=== PATIENT | female | born 1990 | race Caucasian/White ===

== ENCOUNTER 2020-05-27 18:43 | Emergency (ER) | payer OTHER ==
[~2020-05-27] VITALS: Ht 172.7 cm; Wt 81.2 kg
[2020-05-27] MEDS ORDERED: PREDNISONE20 MG PO (19:23)
[2020-05-27] MEDS ORDERED: ACYCLOVIR800 MG PO (19:23)
[2020-05-27] MEDS ORDERED: ACYCLOVIR200 MG PO (19:27)
== END 2020-05-27 19:35 | disposition home or self-care (01) ==
LOC: FSED 19:10
DX: L23.9 Allergic contact dermatitis, unspecified cause (principal); H10.9 Unspecified conjunctivitis
CPT/HCPCS: 99282

== ENCOUNTER 2020-06-09 09:53 | Emergency (ER) | payer OTHER ==
[~2020-06-09] VITALS: Ht 172.7 cm; Wt 81.2 kg
[~2020-06-09 09:53] MED LIST: ACYCLOVIR200 MG PO; ACYCLOVIR800 MG PO; PREDNISONE20 MG PO
[2020-06-09] MEDS ORDERED: AZELASTINE HCL6 ML OU (10:39)
[2020-06-09] MEDS ORDERED: ZYRTEC10 M3 PO (10:39)
[2020-06-09] MEDS ORDERED: MOMETASONE FURO15 G2 TOP (10:39)
== END 2020-06-09 10:50 | disposition home or self-care (01) ==
LOC: FSED 10:30
DX: H10.13 Acute atopic conjunctivitis, bilateral (principal); L23.9 Allergic contact dermatitis, unspecified cause
CPT/HCPCS: 99283

== ENCOUNTER 2020-07-18 13:42 | Emergency (ER) | payer OTHER ==
[~2020-07-18] VITALS: Ht 172.7 cm; Wt 86.2 kg
[~2020-07-18 13:42] MED LIST changes: +AZELASTINE HCL6 ML OU; +MOMETASONE FURO15 G2 TOP; +ZYRTEC10 M3 PO
[2020-07-18] MEDS ORDERED: PREDNISONE50 MG PO (14:09)
[2020-07-18] MEDS ORDERED: ULTRAVATE TOP (14:09)
[2020-07-18] MEDS ORDERED: PREDNISONE20 MG PO (14:09)
[2020-07-18] MEDS ORDERED: HYDROXYZINE HCL25 MG PO (14:09)
== END 2020-07-18 14:39 | disposition home or self-care (01) ==
LOC: FSED 13:45
DX: L23.9 Allergic contact dermatitis, unspecified cause (principal)
CPT/HCPCS: 96372; 99282